=== PATIENT | female | born 1985 | race Caucasian/White ===

== ENCOUNTER 2017-04-03 07:24 | Inpatient (IN) | payer OTHER ==
[2017-04-03 08:24] LABS: Hematocrit 27 % (35-47); Hemoglobin 8.7 g/dl (12.0-16.0); Mean Corpuscular HGB Conc 32 g/dl (31-36); Mean Corpuscular Hemoglobin 20 pg (27-31); Mean Platelet Volume 9 um3 (7.4-10.4); Red Blood Count 4.32 10^6/ul (4.0-5.4); Red Cell Distribution Width 15 % (10.5-15); White Blood Count 11.2 10^3/ul (3.5-10.8)
[2017-04-03 08:25] LABS: Comments Flag Yes; Mean Corpuscular Volume 63 fL (80-97)
[2017-04-03] MEDS ORDERED: Oxytocin in LR* 20 UNITS/1,000 ML BAG IVPB SCH (14:00)
[2017-04-03] MEDS ORDERED: ceFAZolin VIAL(*) 1 GM in NS 0.9% 50 ML* 50 ML IVPB SCH (16:00)
[2017-04-03] MEDS ORDERED: Dibucaine 1% 28.35 GM TUBE PR PRN (19:21)
[2017-04-03] MEDS ORDERED: Witch Hazel PAD* JAR TOPICAL PRN (19:21)
[2017-04-03] MEDS ORDERED: oxyCODONE/Acetamin 5/325 MG* TAB PO PRN (19:21)
[2017-04-03] MEDS ORDERED: Glycerin ADULT SUPP PR PRN (19:21)
[2017-04-03] MEDS ORDERED: Tetan/Diph/Pertus SYR(Tdap)* 0.5 ML SYR(BOOSTRIX) use SYR IM ONE (19:21)
[2017-04-03] MEDS: Ibuprofen TAB* 600 MG PO PRN (19:31)
[2017-04-03] MEDS: Docusate CAP* 100 MG PO SCH (21:51)
[2017-04-03] MEDS: Acetaminophen TAB* 325 MG PO PRN (23:11)
[2017-04-04] MEDS: Ibuprofen TAB* 600 MG PO PRN ×4 (02:10→21:35)
[2017-04-04 06:56] LABS: Hematocrit 27 % (35-47); Hemoglobin 8.7 g/dl (12.0-16.0); Mean Corpuscular HGB Conc 32 g/dl (31-36); Mean Corpuscular Hemoglobin 20 pg (27-31); Mean Corpuscular Volume 63 fL (80-97); Mean Platelet Volume 9 um3 (7.4-10.4); Red Blood Count 4.31 10^6/ul (4.0-5.4); Red Cell Distribution Width 15 % (10.5-15); White Blood Count 18.2 10^3/ul (3.5-10.8)
[2017-04-04 06:58] LABS: Comments Flag Yes
[2017-04-04] MEDS: Acetaminophen TAB* 325 MG PO PRN ×2 (07:16→19:21)
[2017-04-04] MEDS: Docusate CAP* 100 MG PO SCH ×3 (09:08→20:12)
[2017-04-04] MEDS: Ferrous Gluconate TAB* 324 MG TAB PO SCH ×2 (09:08→20:12)
[2017-04-05] MEDS: Ibuprofen TAB* 600 MG PO PRN (04:16)
[2017-04-05 08:48] VITALS: BP 117/67
[2017-04-05] MEDS: Ferrous Gluconate TAB* 324 MG TAB PO SCH (08:55)
[2017-04-05] MEDS: Docusate CAP* 100 MG PO SCH (09:00)
== END 2017-04-05 13:50 | disposition home or self-care (01) | DRG 560 ==
LOC: MCHOBOUT 07:24 → MCHOB 07:44
PROVIDERS: ADMIT Midwife; ATTEND Midwife
PROC: 10E0XZZ Delivery of Products of Conception, External Approach (ICD-10-PCS; principal; 2017-04-03)
PROC: 4A1HXCZ Monitoring of Products of Conception, Cardiac Rate, External Approach (ICD-10-PCS; 2017-04-03)
DX: O98.32 Other infections with a predominantly sexual mode of transmission complicating childbirth (principal); A60.00 Herpesviral infection of urogenital system, unspecified; Z88.5 Allergy status to narcotic agent; Z88.0 Allergy status to penicillin; D56.3 Thalassemia minor; O99.02 Anemia complicating childbirth; O99.824 Streptococcus B carrier state complicating childbirth; Z3A.37 37 weeks gestation of pregnancy; Z37.0 Single live birth; O69.81X0 Labor and delivery complicated by cord around neck, without compression, not applicable or unspecified; O90.81 Anemia of the puerperium
CPT/HCPCS: 36415; 85025; 85027; 86850; 86900; 86901; A9270-GY; J0690